=== PATIENT | female | born 1945 ===

== ENCOUNTER → 2018-03-29 | Outpatient (CLI) | payer OTHER | LOC: FCPNEURO 20:00 | PROVIDERS: ATTEND Psychiatry & Neurology Sleep Medicine | DX: G47.33 Obstructive sleep apnea (adult) (pediatric) (principal) ==

== ENCOUNTER → 2018-04-13 | Outpatient (CLI) | payer OTHER | LOC: FIMAGING 10:21 | PROVIDERS: ATTEND Internal Medicine Pulmonary Disease | DX: R91.8 Other nonspecific abnormal finding of lung field (principal); R06.00 Dyspnea, unspecified; R09.02 Hypoxemia; K44.9 Diaphragmatic hernia without obstruction or gangrene; K76.89 Other specified diseases of liver ==